=== PATIENT | female | born 1970 | race Caucasian/White ===

== ENCOUNTER 2023-04-11 01:00 | Day surgery (SDC) | payer BC, SELFPAY ==
[2023-03-26 13:06] VITALS: BMI 35.2
--- NOTE | 2023-04-09 10:28 | SUR.PREOP ---
Patient called regarding upcoming procedure. Patient did not answer- message left with arrival time.
[2023-04-11 08:42] VITALS: BP 148/78; PULSE 75; RESP 16; TEMP 37.1; O2SAT 100
[2023-04-11] MEDS: LACTATED RINGERS 1,000 ML 150 ML IV CONT (08:46)
--- NOTE | 2023-04-11 09:21 | P.PNAN_ITS ---
Anes - Initial Pre Proc Eval Procedure: Operation Date: 04/11/23 10:00 Proposed Procedures p Screening Colonoscopy - Balaji Ragland MD Date/Time: 04/11/23 09:21 Surgeon: Balaji Ragland MD Pre Op Diagnosis: neoplasm screening Patient Data Age: 52 Gender: F Height: 1.63 m Weight: 106.6 kg Last Vital Signs Temp 98.8 F 04/11/23 08:42 Pulse 75 04/11/23 08:42 Resp 16 04/11/23 08:42 BP 148/78 H 04/11/23 08:42 Pulse Ox 100 04/11/23 08:42 O2 Del Method Room Air 04/11/23 08:42 Allergies Allergy/AdvReac Type Severity Reaction Status Date / Time No Known Allergies Allergy Verified 04/11/23 08:41 Home Medications Medication Instructions Recorded Confirmed Type omeprazole 40 mg capsule,delayed 40 mg PO DAILY #90 caps 02/26/23 04/11/23 Rx release Patient hx anesthesia problems: none Family hx anesthesia problems: none Results Review: All pre-operative results and documents have been reviewed as part of the pre- operative evaluation. [facility] Past Medical History Medical History COVID-19 Family History Family History (Updated 02/26/23 @ 09:17 by Bonnie Brush) Grandparent Family history of mental disorder Carcinoma of colon Family history of dementia DVT (deep venous thrombosis) Mother Other Family history of glaucoma Social History Social History (Updated 02/26/23 @ 09:18 by Bonnie Brush) Smoking status: Never smoker Alcohol intake: never Substance use: never Substance use type: does not use Living arrangements: with family Spiritual care concerns: No Anes - Eval Final PreProcedure Day of Procedure 04/11/23 09:21 Patient weight: morbidly obese Heart: regular rate and rhythm Lungs: clear to auscultation Airway: Mallampati scale class III Neurological: alert and oriented Last oral intake: >/= 8 hours ASA classification: III Emergent: no Anesthetic plan: proceed Anesthesia type and monitoring: general GIVS and standard monitoring Results Review: All pre-operative results and documents have been reviewed as part of the pre- operative evaluation. Informed Consent: The patient's anesthetic plan and its attendant risks and benefits were discussed with the patient/family/POA. Questions were solicited and answers provided to the satisfaction of the patient/family/POA.
--- NOTE | 2023-04-11 09:31 | PM.HPGS ---
History of Present Illness History of Present Illness Consent: Risks, benefits, and alternatives have been discussed and questions answered. Patient agrees to proceed with procedure. Chief complaint: neoplasm screening Narrative: Pat Yoder is a 52 year old female here for screening colonoscopy, last one about 20 years ago Review of Systems Constitutional: Constitutional: Denies headache(s) and Denies weakness Eyes: Eyes: Denies blurry vision ENT: Reports Normal hearing present, Denies headache(s) and Denies neck pain Cardiovascular: Cardiovascular: Denies chest pain and Denies dyspnea Respiratory: Respiratory: Denies dyspnea Gastrointestinal: Gastrointestinal: Reports no additional gastrointestinal complaints Genitourinary: Genitourinary: Denies dysuria Musculoskeletal: Musculoskeletal: Denies neck pain Integumentary/Breasts: Skin/Breast: Denies dry skin Neurologic: Reports Normal hearing present, Denies headache(s) and Denies weakness Psychiatric: Psychiatric: Denies anxiety Endocrine: Endocrine: Denies change in body appearance Hematologic/Lymphatic: Hematologic/Lymphatic: Denies easy bleeding Allergic/Immunologic: Allergic/Immunologic: Denies urticaria PMFSH Past Medical History Medical History COVID-19 Family History Family History (Updated 02/26/23 @ 09:17 by Bonnie Brush) Grandparent Family history of mental disorder Carcinoma of colon Family history of dementia DVT (deep venous thrombosis) Mother Other Family history of glaucoma Social History Social History (Updated 02/26/23 @ 09:18 by Bonnie Brush) Smoking status: Never smoker Alcohol intake: never Substance use: never Substance use type: does not use Living arrangements: with family Spiritual care concerns: No Meds Home Medications and Allergies Home Medications Medication Instructions Recorded Confirmed Type omeprazole 40 mg capsule,delayed 40 mg PO DAILY #90 caps 02/26/23 04/11/23 Rx release Allergies Allergy/AdvReac Type Severity Reaction Status Date / Time No Known Allergies Allergy Verified 04/11/23 08:41 Vital Signs Vital Signs - 24 hr 04/11/23 08:42 Temperature 98.8 F Pulse Rate 75 Respiratory Rate 16 Blood Pressure 148/78 H Pulse Oximetry 100 Oxygen Delivery Room Air Exam Const: General: comfortable and no acute distress HENMT: Face/Nose/Sinus: Normal nares present Eyes: General: appearance normal, both eyes and all related structures Neck: Neck: no JVD Resp: Auscultation: clear to auscultation bilaterally Cardio: Rate: regular rate Rhythm: regular rhythm GI: Inspection: non-distended GI Palp: Yes Soft to palpation Skin: General skin exam: normal color Neuro: General: gait normal Speech: normal speech Extrem: General: normal to inspection Psych: Mental Status: mental status grossly normal Assessment and Plan Assessment and plan (1) Screening for colon cancer: Code(s): Z12.11 - Encounter for screening for malignant neoplasm of colon Status: Acute Assessment and Plan: colonoscopy
--- NOTE | 2023-04-11 09:35 | SUR.OPER ---
PATIENT HAD SECRETIONS NEEDING TO BE SUCTIONED BY VOCAL PERFORMER
[2023-04-11 09:44] VITALS: BP 114/72; PULSE 79; RESP 23; O2SAT 97
[2023-04-11 09:54] VITALS: BP 113/73; PULSE 75; RESP 21; O2SAT 97
[2023-04-11 10:04] VITALS: BP 125/77; PULSE 72; RESP 20; O2SAT 97
== END 2023-04-11 10:16 | disposition home or self-care (01) ==
PROVIDERS: PCP Family Medicine; Visit Provider Internal Medicine Gastroenterology
PROC: 0DJD8ZZ Inspection of Lower Intestinal Tract, Via Natural or Artificial Opening Endoscopic (ICD-10-PCS; CPT 45378; principal; 2023-04-11 10:00)
DX: Z12.11 Encounter for screening for malignant neoplasm of colon (principal); D12.0 Benign neoplasm of cecum; D12.4 Benign neoplasm of descending colon; K57.30 Diverticulosis of large intestine without perforation or abscess without bleeding; E66.01 Morbid (severe) obesity due to excess calories; Z68.41 Body mass index [BMI] 40.0-44.9, adult
CPT/HCPCS: 45385; 88305; J2704; J7120

== ENCOUNTER 2023-09-07 08:02 | Outpatient (CLI) | payer BC, SELFPAY ==
--- NOTE | ~2023-09-07 | MM_ITS ---
EXAMINATION: MM screening raymond BI w loreta HISTORY: Screening mammogram TECHNIQUE: Craniocaudal, rotated bilateral craniocaudal and mediolateral oblique 3-D tomosynthesis im ages of both breasts were obtained and synthetic 2-D images were generated. CAD analysis was submitte d and interpreted. COMPARISON: 05/09/2019 bilateral diagnostic mammography and bilateral complete breast ultrasound exam ination BREAST PARENCHYMAL COMPOSITION: The breasts are heterogeneously dense, which may obscure small masses . FINDINGS: There is no evidence of suspicious mass, calcification, or architectural distortion to sugg est malignancy in either breast. There has been no suspicious interval change. IMPRESSION: 1. No mammographic evidence of malignancy. 2. Recommend routine screening mammography in one year. BI-RADS Category 1: Negative Reviewed, dictated and finalized at location A.
--- NOTE | ~2023-09-07 | DEXA_ITS ---
Bone Density Report Name: RENU STOVER Age: 52 Sex: Female Ethnicity: White Date of : 1970 Indication: postmenopausal; screening for osteoporosis; cancer; Referring Provider: MALIK, BEAR Ramos Study: Bone densitometry was performed. Exam Date: September 07, 2023 Accession number: [id number] Bone Density: Region BMD T-score Z-score Classification AP Spine(L1-L4) 1.053 0.1 1.1 Normal Femoral Neck (Left) 0.905 0.5 1.5 Normal Total Hip (Left) 1.162 1.8 2.5 Normal Femoral Neck (Right) 0.995 1.3 2.4 Normal Total Hip (Right) 1.188 2.0 2.7 Normal Total Hip Mean 1.175 1.9 2.6 Normal World Health Organization criteria for BMD impression classify patients as: Normal (T-score at or above -1.0), Osteopenia (T-score between -1.0 and -2.5), or Osteoporosis (T-score at or below -2.5). 10-year Fracture Risk: FRAX not reported because: All T-scores for Spine Total, Hip Total, Femoral Neck at or above -1.0 Clinical Information Provided by Patient: Has the following medical conditions: Cancer Patient maximum height was 64.5 Menopause Age: 42 Does not regularly consume dairy products Drinks caffeinated beverages Onset of menses at age 12 Number of children 0 Impression: The patient has normal bone mass. Discussion: BONE DENSITY IS ABOVE THE MINIMUM DESIRABLE LEVEL AT ALL SKELETAL SITES TESTED. This patient?s bone mineral density is above the minimum desirable level (T-score -1.0 or better) at all sites measured. The patient should follow a healthful lifestyle (good nutrition with adequate calcium and vitamin D, and appropriate weight-bearing exercise). Follow-Up: Consider repeating this study in 5 years or sooner if there is some new clinical indication. Reported by: GARCIA on 09/07/2023 8:29:00 AM. Reviewed, dictated and finalized at location [facility] [place]
== END 2023-09-07 08:03 | disposition home or self-care (01) ==
LOC: ANHIMG 08:08
PROVIDERS: PCP Family Medicine; Visit Provider Physician Assistant
DX: Z12.31 Encounter for screening mammogram for malignant neoplasm of breast (principal); Z78.0 Asymptomatic menopausal state
CPT/HCPCS: 77063; 77067; 77080